=== PATIENT | female | born 1935 | race Caucasian/White ===

== ENCOUNTER 2017-08-17 20:18 | Emergency (ER) | payer MEDICARE, OTHER ==
[~2017-08-17] VITALS: Ht 162.6 cm; Wt 81.6 kg
--- NOTE | 2017-08-17 20:47 | NUR ---
PT BIB FAMILY TO ER BED 09. C/O L KNEE PAIN/ LLE PAIN AND SWELLING S/P UNWITNESSED FALL EARLIER TODAY. PT DENIES HEAD TRAUMA. GOWNED AND PLACED ON MONITOR. AWAITING MD DUMONT.
--- NOTE | 2017-08-17 21:10 | NUR ---
WILLIAM GIORDANO AT BEDSIDE FOR EVAL.
--- NOTE | 2017-08-17 21:15 | NUR ---
Francis brooks in [facility] - 08/17/17 at 2116 by [employer]IA MANAGER AT BEDSIDE FOR SANDIAL.
--- NOTE | 2017-08-17 21:15 | NUR ---
ACCOUNTING BOOKKEEPER AT BEDSIDE FOR BLOOD DRAW.
[2017-08-17 21:26] LABS: BASOPHILS % (AUTO) 0.3 % (0.0-2.0); EOSINOPHILS % (AUTO) 0.2 % (0.0-6.0); HEMATOCRIT 33 % (33-45); HEMOGLOBIN 10.9 g/dL (11.5-14.8); LYMPHOCYTES % (AUTO) 21.2 % (20.0-44.0); MEAN CORPUSCULAR HEMOGLOBIN 29 PG (26.0-33.0); MEAN CORPUSCULAR HGB CONC 34 g/dl (31.0-36.0); MEAN CORPUSCULAR VOLUME 87 fL (82-100); MONOCYTES # (AUTO) 0.6 /CMM (0.1-1.30); MONOCYTES % (AUTO) 12.4 % (2.0-12.0); NEUTROPHILS # (AUTO) 3.3 /CMM (1.8-8.9); NEUTROPHILS % (AUTO) 65.9 % (43.0-81.0); PLATELET COUNT (AUTO) 163 /CMM (150-450); RDW COEFFICIENT OF VARIATION 13.1 (11.5-15.0); RED BLOOD CELL COUNT(AUTO) 3.75 MIL/uL (4.0-5.2); WHITE BLOOD COUNT (AUTO) 4.9 K/uL (4.3-11.0)
--- NOTE | 2017-08-17 21:27 | NUR ---
RADIOLOGY AT BEDSIDE FOR PELVIC AND LT KNEE XRAY.
--- NOTE | 2017-08-17 21:40 | NUR ---
PT TO RADIOLOGY FOR HEAD AND C SPINE CT SCAN VIA [facility].
[2017-08-17 21:43] LABS: CALCIUM, SERUM 8.5 mg/dL (8.5-10.1); CARBON DIOXIDE 27 mmol/L (21-32); CHLORIDE 106 mmol/L (98-107); GLUCOSE 120 mg/dL (74-106); POTASSIUM 3.7 mmol/L (3.5-5.1); SODIUM SERUM 141 mmol/L (136-145); UREA NITROGEN, BLOOD 25 mg/dL (7-18)
[2017-08-17 21:47] LABS: INR 1.34 (0.87-1.13); PROTHROMBIN TIME 14.1 SECS (9.5-12.7)
[2017-08-17 22:35] LABS: APPEARANCE,URINE CLEAR (CLEAR); BILIRUBIN,URINE NEGATIVE (NEGATIVE); BLOOD, URINE NEGATIVE Ery/uL (NEGATIVE); COLOR,URINE YELLOW (YELLOW); KETONES,URINE NEGATIVE (NEGATIVE); LEUKOCYTE ESTERASE ,URINE NEGATIVE (NEGATIVE); NITRITE, URINE NEGATIVE (NEGATIVE); PH,URINE 5.5 (5.0-8.0); PROTEIN,URINE NEGATIVE (NEGATIVE); UGLUCOSE NEGATIVE (NEGATIVE); UROBILINOGEN,URINE 0.2 EU/dL (0.2)
[2017-08-17 23:05] VITALS: BP 136/76
--- NOTE | 2017-08-17 23:05 | NUR ---
Patient discharged to home in stable condition. Written and verbal after care instructions given. Patient and Family verbalizes understanding of instruction.
== END 2017-08-17 23:06 | disposition home or self-care (01) ==
LOC: ER 20:20
DX: M25.562 Pain in left knee (principal); R51 Headache; E11.9 Type 2 diabetes mellitus without complications; E78.00 Pure hypercholesterolemia, unspecified; G93.89 Other specified disorders of brain; I10 Essential (primary) hypertension; M54.2 Cervicalgia; I51.7 Cardiomegaly; R79.1 Abnormal coagulation profile; J45.909 Unspecified asthma, uncomplicated; Z95.0 Presence of cardiac pacemaker; Z86.73 Personal history of transient ischemic attack (TIA), and cerebral infarction without residual deficits; W18.39XA Other fall on same level, initial encounter; Y92.89 Other specified places as the place of occurrence of the external cause; Y93.89 Activity, other specified; Y99.8 Other external cause status
CPT/HCPCS: 36415; 70450; 71010; 72125; 72170; 73564; 80048; 81001; 85025; 85730; 93005; 99285; A4606; 81000-TC; Z7610

== ENCOUNTER 2017-10-01 12:57 | Emergency (ER) | payer MEDICARE, OTHER ==
[~2017-10-01] VITALS: Ht 162.6 cm; Wt 81.6 kg
--- NOTE | 2017-10-01 13:05 | NUR ---
BIB SON DT RIGHT LEG SWELLING AND REDNESS SINCE SUNDAY. PATIENT DENIES PAIN OR DISCOMFORT. ABLE TO AMBULATE USING FWW. SKIN IS WARM TO TOUCH AND NON DIAPHORETIC, AFEBRILE. VSS
--- NOTE | 2017-10-01 14:18 | NUR ---
U/S TECH AT BEDSIDE FOR BILAT LOWER EX ULTRASOUND.
[2017-10-01 14:45] VITALS: BP 142/85
== END 2017-10-01 14:56 | disposition home or self-care (01) ==
LOC: ER 13:02
DX: L03.115 Cellulitis of right lower limb (principal); E11.9 Type 2 diabetes mellitus without complications; E78.00 Pure hypercholesterolemia, unspecified; I10 Essential (primary) hypertension; I25.10 Atherosclerotic heart disease of native coronary artery without angina pectoris; J45.909 Unspecified asthma, uncomplicated; Z86.73 Personal history of transient ischemic attack (TIA), and cerebral infarction without residual deficits; Z95.0 Presence of cardiac pacemaker
CPT/HCPCS: 93970; 99284; A4606; Z7610